=== PATIENT | male | born 1990 | race Caucasian/White ===

== ENCOUNTER 2021-11-23 14:07 | Emergency (ER) | payer OTHER, SELFPAY ==
[~2021-11-23] VITALS: Ht 167.6 cm; Wt 73.3 kg
[2021-11-23 14:08] VITALS: BP 159/93
== END 2021-11-23 14:13 | disposition left against medical advice (07) ==
LOC: M ED 14:07
DX: Z53.21 Procedure and treatment not carried out due to patient leaving prior to being seen by health care provider (principal)